=== PATIENT | female | born 1955 | race Caucasian/White ===

== ENCOUNTER 2022-04-23 09:16 | Outpatient (CLI) | payer MEDICARE, SELFPAY ==
--- NOTE | ~2022-04-23 | MR_ITS ---
EXAMINATION: MR shoulder RT wo con DATE: 04/23/2022 09:58 INDICATION: Chronic right shoulder pain TECHNIQUE: Magnetic resonance imaging (MRI) of the right shoulder was performed without intravenous c ontrast. Sequences included axial PD-weighted FS FSE, coronal oblique PD-weighted FS FSE, coronal obl ique T2-weighted FS FSE, sagittal PD-weighted FS FSE, and sagittal T1-weighted SE. COMPARISON: None. FINDINGS: Coracoacromial arch: The acromion undersurface is curved in morphology (type II). The coracoacromial ligament is normal. M oderate acromioclavicular osteoarthritis. Rotator cuff: Supraspinatus and mild infraspinatus tendinopathy. There is minimal amount of fluid signal along the central aspect of the superior facet footplate of the supraspinatus tendon which appears mildly thinn ed consistent with additional mild likely intrasubstance tear. No clearly defined or measurable tear defect appreciated. The teres minor and subscapularis tendons are normal. Normal rotator cuff muscle bulk and signal. Biceps tendon, glenoid labrum and glenohumeral cartilage: Long head of the biceps tendon is normal. There is a tear at the 12:00-10:30 position of the superior to posterior superior glenoid labrum. Glenohumeral cartilage is normal. Fluid: Small mild fluid in the long head biceps tendon sheath disproportionate to the physiologic amount flu id in the glenohumeral joint space consistent with mild bicipital tenosynovitis. No loose osteochondr al bodies. Small amount of fluid in the subacromial/subdeltoid bursa consistent with mild bursitis. Bones: Normal marrow signal with no edema, fracture or abnormal marrow replacing process. Mild cystic change at the superior facet of the greater tuberosity. IMPRESSION: 1. Moderate supraspinatus and mild infraspinatus tendinopathy with small mild likely intrasubstance t ear along the superior facet footplate of the supraspinatus tendon evidence by thinning of the distal tendon but without a clearly defined or measurable tear defect. 2. SLAP tear of the superior to posterosuperior glenoid labrum. 3. Moderate acromioclavicular osteoarthritis with mild underlying subacromial/subdeltoid bursitis. 4. Mild bicipital tenosynovitis without evident tendinopathy or tear. Reviewed, dictated and finalized at location A. [employer] IMPRESSION: 1. Moderate supraspinatus and mild infraspinatus tendinopathy with small mild l ikely intrasubstance tear along the superior facet footplate of the supraspinat us tendon evidence by thinning of the distal tendon but without a clearly defin ed or measurable tear defect. 2. SLAP tear of the superior to posterosuperior glenoid labrum. 3. Moderate acromioclavicular osteoarthritis with mild underlying subacromial/s ubdeltoid bursitis. 4. Mild bicipital tenosynovitis without evident tendinopathy or tear.
== END 2022-04-23 09:17 | disposition home or self-care (01) ==
PROVIDERS: PCP Family Medicine; Visit Provider Orthopaedic Surgery
DX: M19.011 Primary osteoarthritis, right shoulder (principal); M75.21 Bicipital tendinitis, right shoulder
CPT/HCPCS: 73221